=== PATIENT | male | born 1965 | race Caucasian/White ===

== ENCOUNTER → 2020-12-02 15:12 | Outpatient (BNVA) | payer SELFPAY | PROVIDERS: PCP Family Medicine; Referring Provider Family Medicine; Visit Provider Podiatrist Foot & Ankle Surgery | DX: S99.929A Unspecified injury of unspecified foot, initial encounter (principal); X58.XXXA Exposure to other specified factors, initial encounter; M81.8 Other osteoporosis without current pathological fracture | CPT/HCPCS: 73630; 73650 ==

== ENCOUNTER → 2020-12-14 11:10 | Outpatient (BNVA) | payer SELFPAY | PROVIDERS: PCP Family Medicine; Visit Provider Podiatrist Foot & Ankle Surgery | DX: Z20.822 Contact with and (suspected) exposure to COVID-19 (principal); Z11.52 Encounter for screening for COVID-19; S92.012S Displaced fracture of body of left calcaneus, sequela; M19.079 Primary osteoarthritis, unspecified ankle and foot; M79.672 Pain in left foot | CPT/HCPCS: 87635 ==

== ENCOUNTER 2020-12-18 07:05 | Day surgery (SDC) | payer SELFPAY ==
[2020-12-18] VITALS (16 sets, daily range): BP systolic 131–166; BP diastolic 62–102; PULSE 70–90; RESP 16–18; TEMP 36.3–36.6; O2SAT 94–100; BMI 21.4
--- NOTE | 2020-12-18 | SCC_ITS ---
Procedure Done: Left subtalar joint fusion CPT code 04847 58 seconds of fluoroscopic guidance, for a cumulative dose of 1.8 mGy, was provided to Dr. Rubalcava by the radiology department. C-arm images of the LEFT foot were saved for the patient's permanent record. [facility]
[2020-12-18] MEDS: sodium chloride 0.9% 1,000 ML 30 ML IV (07:32)
--- NOTE | 2020-12-18 07:47 | P.ANESASSM_ITS ---
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 Proposed Procedure: Operation Date: 12/18/20 08:30 Proposed Procedures p Fusion Subtalar Joint left 01951 S92.0125(Left) - SHONDA SrM Was Beta Mia taken within 24 hours: N/A Was Clonidine taken within 24 hours: N/A Last intake: Intake Last Liquid Date 12/18/20 Last Liquid Time 06:00 Last Solid Date 12/17/20 Last Solid Time 21:00 Social: Social History: Alcohol and Tobacco Exam: Pre-Anes Outpt Exam: alert, oriented x 3, clear to auscultation bilaterally and regular rate & rhythm Airway: Submandibular: WNL Cervical ROM: WNL MP: 2 Dentition: False Pulmonary: Pulmonary: COPD CV/HEM: CV/HEM: HTN Anesthetic Plan: ASA status: 3 Anesthesia: General Risk of > 500 ml blood loss (7ml/kg in children): No Meds/Allergies Current Medications: Current Medications Generic Name Dose Route Start Last Admin Trade Name Freq PRN Reason Stop Dose Admin Sodium Chloride 1,000 mls @ 30 ml s/hr 12/18/20 07:30 12/18/20 07:32 Sodium Chloride 0.9% IV 12/19/20 07:29 30 mls/hr .Q24H JAZZY Administration PFSH Anesthesia PFSH: Family History (Updated 12/14/20 @ 11:30 by Erica Johns LPN) Father Rheumatoid arthritis Heart disease Mother Rheumatoid arthritis Cancer Social History (Updated 12/14/20 @ 11:29 by Erica Johns LPN) Smoking and tobacco status: current every day smoker cigarettes Packs smoked per day: 2 Years cigarettes smoked: 66 Quit status (tobacco): not considering quitting Second hand smoke exposure: Yes Smoking risk assessment/counseling performed?: Yes Alcohol intake: current Alcohol intake frequency: few times a week Alcohol type: beer Desire information about alcohol rehabilitation?: No Counseling given: Yes Desire information about substance/drug rehabilitation?: No Counseling given: Yes Adopted: No Caregiver/support person: No Lives independently: Yes Household members: none Housing: House Marital status: Number of children: 3 Number of grandchildren: 1 Highest education level completed: 8th Grade service: No Current occupational status: employed Current occupation: lead sales consultant Current occupational exposures/hazards: No Pets and animals: Yes Pets & animals: dog(s) History of recent travel: No Leisure activites: hunting and fishing Sexually active: Yes Current gender identity: Male Renata/Pentecostal: Pentecostalism Special renata needs: No Agree to transfusion: Yes Financial difficulty paying for basics: Not Very Hard Data Anesthesia Cardiac Studies: No Data to Display
--- NOTE | 2020-12-18 08:53 | W.PM.OPSUD ---
Surgery/Procedure H&P Update DATE OF PROCEDURE: December 18, 2020 DATE H&P PERFORMED: 12/14/20 H&P UPDATE INFORMATION: I have reviewed H&P completed within last 30 days, I have examined patient prior to procedure, No changes to prior documentation and H&P is in [facility] EMR on date indicated PREOP DIAGNOSIS: Posttraumatic arthritis left subtalar joint PLANNED PROCEDURE: Operation Date: 12/18/20 08:30 Proposed Procedures p Fusion Subtalar Joint left 12174 S92.0125(Left) - Mert Rubalcava DPM
--- NOTE | 2020-12-18 08:54 | PM.OP ---
Operative Report Date of procedure: December 18, 2020 Pre-op Diagnosis: Post traumatic arthritis left subtalar joint Post-op diagnosis: same Procedure Done: Left subtalar joint fusion CPT code 95080 Implants: Arthrex 7.0 mm FT compression screw x3. 2-0 Vicryl, 4-0 Vicryl, 4-0 nylon Surgeon: Mert Rubalcava D.P.M. Magnet Maker: Tatiana Anesthesia: General Estimated blood loss: Less than 10 mL Tourniquet time: See intraoperative documentation Condition: stable Disposition: PACU Brief History: Patient sustained a left calcaneal fracture with intra-articular extension. Has had persistent pain that has increased since his fracture and is unable to bear weight even with a cam boot at this time. He has posttraumatic arthritis of the subtalar joint. I recommended subtalar joint fusion. Risks include pain, bleeding, numbness, infection, swelling, bruising, surgical site dehiscence, delayed union, nonunion, malunion, painful retained hardware, hardware irritation and hardware failure. Patient is agreeable wishes to proceed he is n.p.o. since midnight. I initialed his left lower extremity. Informed consent signed by myself and patient. No guarantees written, expressed or implied. Procedure: Under mild sedation the patient was brought to the operating room and placed on the operating table in supine position. A timeout was performed. Anesthesia was then administered by the anesthesia service. Local anesthesia injected by myself total of 20 cc of one-to-one mixture of 1% lidocaine 0.5% Marcaine plain and a left ankle block fashion. Well-padded pneumatic tourniquet applied to the left ankle. The left lower extremity was then scrubbed, prepped and draped utilizing normal aseptic technique. Left lower extremity was then exsanguinated with an Esmarch bandage and the tourniquet was inflated to 250 mmHg. Attention was directed to the right lateral foot where the distal fibula was palpated as well as a fourth metatarsal sinus tarsi incision was performed with a #15 blade in a curvilinear fashion. This was incised through skin and down through subcutaneous tissue. Utilizing sharp and blunt dissection care was taken to retract and preserve neurovascular and tendinous structures. Bleeders were ligated and cauterized as necessary. Extensor digitorum brevis origin was reflected out of the sinus tarsi and a intermittent distractor with Steinmann pins utilized to distract the subtalar joint. This was prepped and denuded of articular surface followed by subchondral drilling and flushed with saline solution. Ortho biologic packed into bone void and the subtalar joint was held in slight valgus followed by fixation utilizing standard AO technique utilizing the Arthrex FT screws 7.0 mm x 3 with excellent bony apposition and compression noted. Incision sites were flushed with copious amounts of sterile saline solution. Periosteum and muscle reattached utilizing 2-0 Vicryl. Subcutaneous tissue closed utilizing 4-0 Vicryl and skin closed utilizing 4-0 nylon. Incision sites were dressed with Adaptic, sterile 4 x 4's, Kerlix and Marcos wrap, patient was placed in the cam boot to left lower extremity. Intraoperative fluoroscopy confirmed excellent placement of orthopedic hardware in all 3 cardinal planes ankle joint was not violated. Utilized 3 views of the foot as well as an AP and mortise of the ankle to confirm placement. Tourniquet was deflated and a prompt hyperemic response was noted to the distal digits of the left foot. Patient tolerated the procedure and anesthesia well and was transferred to the PACU with vital signs stable and vascular status intact. Following a period of postoperative monitoring he will be discharged home is to remain strict nonweightbearing to left lower extremity and elevate left foot while at rest. He was advised to take a baby aspirin once daily for DVT prophylaxis. Was given my cell phone number with postoperative instructions will contact me with any questions or concerns.
[2020-12-18] MEDS: lidocaine 1% INJ 20 mL INJECTION (09:36)
--- NOTE | 2020-12-18 10:47 | XR_ITS ---
WS: [id number] Left foot, 3 views, 12/18/2020 Clinical Data: post op Comparison: Left foot, 12/02/2020. Findings: There are 3 orthopedic screws between the talus and the calcaneus. Diffuse osteoporosis of the left foot is again seen. XR/XR foot LT min 3V* [id number] Impression: Insertion of orthopedic screws between the talus and calcaneus of the left foot .
[2020-12-18] MEDS: fentaNYL 50 mcg/mL INJ 2mL IVP ×2 (10:52→10:57)
[2020-12-18] MEDS: ondansetron 2 mg/ML SDV 2 mL 4 MG IVP ×2 (11:04→11:20)
[2020-12-18] MEDS: morphine 4 mg/mL SDV 1 mL 2 MG IVP ×2 (11:04→11:09)
[2020-12-18] MEDS: metoclopramide 5 mg/mL SDV 2 mL 10 MG IVP (11:29)
[2020-12-18] MEDS: HYDROcodone-acetaminophen 10-325 mg Tablet 1 TAB PO (12:00)
--- NOTE | 2020-12-18 12:36 | ANE.PACU2 ---
Inpatient post-anesthesia follow up: Airway intact: Yes Vital signs: Temperature 97.8 F Pulse Rate 71 Respiratory Rate 18 Blood Pressure 140/94 Pulse Oximetry 96 Oxygen Delivery Me thod Room Air Oxygen Flow Rate 8 Fraction of Inspir ed Oxygen Hydration adequate: Yes Nausea and vomiting: No Pain level: 1 Mental status: Baseline
== END 2020-12-18 12:33 | disposition home or self-care (01) ==
PROVIDERS: PCP Family Medicine; Visit Provider Podiatrist Foot & Ankle Surgery
PROC: (CPT 28750; principal; 2020-12-18 08:20)
DX: M19.072 Primary osteoarthritis, left ankle and foot (principal); J44.9 Chronic obstructive pulmonary disease, unspecified; I10 Essential (primary) hypertension; F17.210 Nicotine dependence, cigarettes, uncomplicated
CPT/HCPCS: 28725; 73630; 76000; 96365; C1713; C1762; J0690; J2270; J2370; J2405; J2704; J2765; J3010; J3490; J7030

== ENCOUNTER → 2020-12-25 11:43 | Outpatient (BNVA) | payer SELFPAY | PROVIDERS: PCP Family Medicine; Visit Provider Podiatrist Foot & Ankle Surgery | DX: M79.672 Pain in left foot (principal); M19.079 Primary osteoarthritis, unspecified ankle and foot; S92.012S Displaced fracture of body of left calcaneus, sequela; X58.XXXS Exposure to other specified factors, sequela | CPT/HCPCS: 73630 ==

== ENCOUNTER → 2020-12-31 15:14 | Outpatient (BNVA) | payer SELFPAY | PROVIDERS: PCP Family Medicine; Visit Provider Podiatrist Foot & Ankle Surgery | DX: Z98.890 Other specified postprocedural states (principal); M79.672 Pain in left foot | CPT/HCPCS: 73630 ==

== ENCOUNTER → 2021-01-14 13:56 | Outpatient (BNVA) | payer SELFPAY | PROVIDERS: PCP Family Medicine; Visit Provider Podiatrist Foot & Ankle Surgery | DX: Z98.890 Other specified postprocedural states (principal) | CPT/HCPCS: 73650 ==

== ENCOUNTER → 2021-01-28 13:36 | Outpatient (BNVA) | payer SELFPAY | PROVIDERS: PCP Family Medicine; Visit Provider Podiatrist Foot & Ankle Surgery | DX: Z98.890 Other specified postprocedural states (principal); M79.672 Pain in left foot | CPT/HCPCS: 73650 ==

== ENCOUNTER → 2021-02-12 11:09 | Outpatient (BNVA) | payer SELFPAY | PROVIDERS: PCP Family Medicine; Visit Provider Podiatrist Foot & Ankle Surgery | DX: Z98.890 Other specified postprocedural states (principal); M79.672 Pain in left foot; S92.012S Displaced fracture of body of left calcaneus, sequela; X58.XXXS Exposure to other specified factors, sequela | CPT/HCPCS: 73650 ==

== ENCOUNTER → 2021-03-15 07:58 | Outpatient (BNVA) | payer SELFPAY | PROVIDERS: PCP Family Medicine; Visit Provider Podiatrist Foot & Ankle Surgery | DX: Z98.890 Other specified postprocedural states (principal); M79.672 Pain in left foot; S92.012S Displaced fracture of body of left calcaneus, sequela; M19.079 Primary osteoarthritis, unspecified ankle and foot; X58.XXXS Exposure to other specified factors, sequela | CPT/HCPCS: 73630 ==

== ENCOUNTER → 2021-04-02 08:47 | Outpatient (BNVA) | payer SELFPAY | PROVIDERS: PCP Family Medicine; Visit Provider Podiatrist Foot & Ankle Surgery | DX: Z98.890 Other specified postprocedural states (principal); M79.672 Pain in left foot; M19.079 Primary osteoarthritis, unspecified ankle and foot; S92.012S Displaced fracture of body of left calcaneus, sequela; X58.XXXS Exposure to other specified factors, sequela | CPT/HCPCS: 73630 ==